=== PATIENT | female | born 1985 ===

== ENCOUNTER 2020-01-12 09:00 | Inpatient (IN) | payer SELFPAY ==
[2020-01-12] MEDS ORDERED: LACTATED RINGERS 1,000 ML ONE (09:33)
[2020-01-12] MEDS ORDERED: METOCLOPRAMIDE 10 MG/2 ML INJ ONE (09:59)
[2020-01-12] MEDS ORDERED: BICITRA ORAL LIQD 30ML PO SCH ×2 (10:00→12:30)
[2020-01-12] MEDS ORDERED: FAMOTIDINE 20 MG/2 ML INJ IV NR (10:00)
[2020-01-12] MEDS ORDERED: OXYTOCIN 20 UNIT/1000ML DRIP 20 UNITS/1,000 ML BAG IV SCH ×2 (10:00→14:00)
[2020-01-12] MEDS ORDERED: LACTATED RINGERS 1,000 ML IV SCH (10:00)
[2020-01-12] MEDS ORDERED: METOCLOPRAMIDE 10 MG/2 ML INJ IV SCH (10:00)
[2020-01-12 10:23] LABS: Basophils # (Auto) 0.1 K/mm3 (0.0-0.1); Basophils % (Auto) 0.6 % (0.0-1.8); Eosinophils # (Auto) 0.2 K/mm3 (0.0-0.4); Eosinophils % (Auto) 1.6 % (0.0-4.3); Hematocrit 31.8 % (30.3-42.9); Hemoglobin 10.1 gm/dl (10.1-14.3); Lymphocytes # (Auto) 1.2 K/mm3 (1.2-5.4); Lymphocytes % (Auto) 11.1 % (13.4-35.0); Mean Corpuscular HGB Conc 32 % (30-34); Mean Corpuscular Volume 80 fl (79-97); Monocytes # (Auto) 0.5 K/mm3 (0.0-0.8); Monocytes % (Auto) 4.5 % (0.0-7.3); Platelet Count 250 K/mm3 (140-440); Red Cell Distribution Width 17.5 % (13.2-15.2)
--- NOTE | 2020-01-12 11:26 | Anesthesia Day of Surgery ---
Anesthesia Day of Surgery - Day of Surgery Patient Examined: Yes Patient H&P Reviewed: Yes Patient is NPO: Yes
--- NOTE | 2020-01-12 11:26 | Anesthesia Consultation ---
Anesthesia Consult and Med Hx Date of service: 01/12/20 - Airway Anesthetic Teeth Evaluation: Good ROM Head & Neck: Adequate Mental/Hyoid Distance: Adequate Mallampati Class: Class II Intubation Access Assessment: Good - Pulmonary Exam CTA: Yes - Cardiac Exam Cardiac Exam: RRR - Pre-Operative Health Status ASA Pre-Surgery Classification: ASA2 Proposed Anesthetic Plan: Spinal - Pulmonary Hx Asthma: No - Cardiovascular System Hx Hypertension: No - Central Nervous System Hx Seizures: No Hx Psychiatric Problems: No - Endocrine Hx Renal Disease: No Hx Hypothyroidism: No Hx Hyperthyroidism: No - Hematic Hx Anemia: No Hx Sickle Cell Disease: No - Other Systems Hx Alcohol Use: No
[2020-01-12] MEDS ORDERED: DEXMEDETOMIDINE 200 MCG/2 ML VIAL IV ONE (11:32)
[2020-01-12] MEDS ORDERED: BUPIVACAINE /DEX-WATER 0.75% (2 ML) AMPULE INFILTRATI ONE (11:32)
[2020-01-12] MEDS ORDERED: ONDANSETRON 4 MG/2 ML INJ ONE (11:32)
--- NOTE | 2020-01-12 11:55 | History and Physical Report ---
History of Present Illness Date of examination: 01/12/20 Date of admission: 01/12/20 09:00 Chief complaint: Here for an elective History of present illness: Term . EDC January 21, 2020. 1 previous . Past History - Obstetrical History Expected Date of Delivery: 01/16/20 Actual Gestation: 39 Week(s) 3 Day(s) : 2 Para: 1 Medications and Allergies Allergies Allergy/AdvReac Type Severity Reaction Status Date / Time No Known Allergies Allergy Verified 01/12/20 09:55 Active Meds: Active Medications Citric Acid/Sodium Citrate (Bicitra) 30 ml PO ONCE AYE Stop: 01/12/20 15:00 Last Admin: 01/12/20 11:38 Dose: 30 ml Documented by: Ephedrine Sulfate (Ephedrine Sulfate) 10 mg IV Q2M PRN PRN Reason: Hypotension Famotidine (Pepcid) 20 mg IV ONCE NR Stop: 01/12/20 12:00 Last Admin: 01/12/20 11:37 Dose: 20 mg Documented by: Oxytocin/Sodium Chloride (Pitocin/Ns 20 Unit/1000ml Drip) 20 units in 1,000 mls @ 0 mls/hr IV TITR AYE Lactated Ringer's (Lactated Ringers) 1,000 mls @ 2,250 mls/hr IV PREOP AYE Stop: 01/13/20 10:27 Fentanyl/Bupivacaine/Sodium Chlor (Fentanyl-Bupiv 2 Mcg/Ml-0.125%) 200 mcg in 1 00 mls @ 12 mls/hr EPIDURAL TITR AYE; Protocol Metoclopramide HCl (Reglan) 10 mg IV ONCE AYE Stop: 01/12/20 13:00 Last Admin: 01/12/20 11:37 Dose: 10 mg Documented by: Naloxone HCl (Naloxone) 0.2 mg IV Q5M PRN PRN Reason: Respiratory sedation Review of Systems All systems: negative - Vital Signs Vital signs: Vital Signs Pulse Pulse Ox 85 98 01/12/20 09:31 01/12/20 09:31 Temp Pulse Resp BP Pulse Ox 98.6 F 86 18 109/64 98 01/12/20 10:15 01/12/20 09:36 01/12/20 10:15 01/12/20 09:33 01/12/20 09:36 - Physical Exam Lungs: Positive: Normal air movement Abdomen: Positive: distention. Negative: tenderness, guarding Extremities: Positive: normal Deep Tendon Reflex Grade: Normal +2 - Obstetrical FHR: auscultation normal Results Result Diagrams: 01/12/20 09:48 Abnormal lab results 01/12/20 Range/Units 09:48 MCH 25 L (28-32) pg RDW 17.5 H (13.2-15.2) % Lymph % (Auto) 11.1 L (13.4-35.0) % Seg Neutrophils % 82.2 H (40.0-70.0) % Seg Neutrophils # 9.1 H (1.8-7.7) K/mm3 All other labs normal. Assessment and Plan - Patient Problems (1) Term Current Visit: Yes Status: Acute (2) Previous section complicating Current Visit: Yes Status: Acute Plan to address problem: The pros and cons of versus repeat section were discussed with the patient and after answering all her questions she provided her consent choosing to have a repeat .
[2020-01-12] MEDS ORDERED: OXYTOCIN 10 UNIT/1 ML INJ ONE (11:58)
[2020-01-12] MEDS ORDERED: ceFAZolin/Water 2 GM/20 ML 2 GM/20 ML SYRINGE IV NR (12:00)
[2020-01-12] MEDS ORDERED: ePHEDrine SULFATE 50 MG/1 ML INJ IV PRN (12:00)
[2020-01-12] MEDS ORDERED: ceFAZolin/STERILE WATER 2 GM/20 ML SYRINGE IV ONE (12:00)
[2020-01-12] MEDS ORDERED: fentaNYL-BUPIV 2 MCG/ML-0.125% 200 MCG/100 ML BAG EPIDURAL SCH (12:00)
[2020-01-12] MEDS ORDERED: NALOXONE 2 MG/2 ML INJ IV PRN (12:00)
[2020-01-12] MEDS ORDERED: WATER FOR IRRIG STERILE 1,500 ML BOTTLE IR ONE (12:11)
[2020-01-12] MEDS ORDERED: SODIUM CHLORIDE 0.9% IRR 1,500 ML BOTTLE IR ONE (12:11)
[2020-01-12] MEDS ORDERED: KETOROLAC 30 MG/1 ML INJ ONE (12:41)
[2020-01-12] MEDS ORDERED: PHENYLEPHRINE/NS 1,000 MCG/10 ML SYRINGE (OR USE) IV ONE (12:41)
[2020-01-12] MEDS ORDERED: diphenhydrAMINE 50 MG/ML VIAL ONE (12:41)
[2020-01-12] MEDS ORDERED: dexAMETHasone 20 MG/5 ML VIAL ONE (12:41)
--- NOTE | 2020-01-12 13:12 | Operative Report ---
Operative Report Operative Report: Date of surgery: January 12, 2020 Preoperative diagnoses: Term , previous section, breech pr esentation Postoperative diagnoses: The same. Operation: Lower segment transverse delivery Surgeon: Venecia Hand MD Shoe Designer: Massimo Sutherland CRNA Anesthesia: Spinal block Estimated blood loss: 300 mL Complications: None Findings: There was a live baby girl in liliana breech, weight 6 pounds 12 ounces, Apgars 8 and 9. The ovaries, fallopian tubes and the uterus were all grossly normal. There were no significant adhesions within the pelvis. Procedure in detail: The patient was taken to the operating room and given a spinal block. Patient was placed in the straight supine position and a Cole catheter was inserted. The patient was prepped in the abdomen. The drapes were placed. A timeout was done. With the go ahead from the machine pack assembler, a Pfannenstiel incision was made. This incision was carried across the subcutaneous layer to the fascia which was also divided transversely. The recti abdominis muscle flaps were stripped from the fascia using a combination of blunt and sharp dissections. The muscles were in the midline to gain access to the anterior parietal peritoneum which was divided after excluding any underlying viscera. The access to the peritoneal cavity was then widened by manual stretching. The bladder blade was applied. The utero vesicle peritoneal flap was divided transversely allowing the bladder to be displaced caudally. The uterine incision was placed in the lower segment transversely. The uterine incision was carried to the decidual layer. The uterine incision was extended on both sides using the bandage scissors. The amniotic sac was ruptured with clear fluid. The buttocks were delivered through the incision by pulling with the fingers within the flexed thigh against the pelvis. Upon reaching close to the knees t he thighs were each abducted to deliver the lower limbs through the incision. Using a wet towel wrapped around the waist traction was used to deliver the baby up to the shoulder blades. The Lovset maneuver was used to deliver the arms. The baby was then grasped and the ankles and positioned head down after which fundal pressure and traction on the ankles delivered the head through the incision. The airways were bulb suctioned beginning with the mouth. The umbilical cord was double clamped and divided. The baby was carefully transferred to the pediatric team. The placenta was manually removed from the uterine cavity. The uterine cavity was explored and was empty of any placental remnants. The uterine incision was repaired in 2 layers with #1 Vicryl. The surgical line on the uterus was hemostatic. Blood and clots were cleared from the peritoneal cavity. The anterior parietal peritoneum was repaired with #1 Vicryl. The fascia was repaired with #1 Vicryl. The subcutaneous layer was made hemostatic using the Bovie before the skin was closed subcuticularly with 4-0 Vicryl. There were no complications. The estimated blood loss was 300 mL. All sponges and instrument counts were correct. Patient was safely transferred to the recovery room.
[2020-01-12] MEDS ORDERED: ACETAMINOPHEN 325 MG TAB PO PRN (13:13)
[2020-01-12] MEDS ORDERED: MORPHINE 4 MG/1 ML INJ IV PRN (13:13)
[2020-01-12] MEDS ORDERED: LANOLIN/ZINC/DIMETHICONE (LANSINOH) 7 GM TP PRN (13:13)
[2020-01-12] MEDS ORDERED: NALOXONE 0.4 MG/1 ML INJ IV PRN (13:13)
[2020-01-12] MEDS ORDERED: WITCH HAZEL/ GLYCERIN PAD TP PRN (13:13)
[2020-01-12] MEDS ORDERED: ONDANSETRON 4 MG/2 ML INJ IV PRN (13:13)
--- NOTE | 2020-01-12 13:21 | Progress Note ---
Spinal Anesthesia Block - Spinal Anesthesia Block Start Time: 11:44 Stop Time: 12:58 Performed by:: IZABEL KUO Procedure: Spinal anesthesia block is being performed for repeat . H&P, labs have been reviewed. Patient's questions and concerns have been answered. Informed consent has been performed. Timeout has was performed. Patient in sitting position on side of bed. Sterile prep and drape was performed. 3 mL 1% lid ocaine skin wheal at L 3-L 4. Needle introducer advanced. 25-gauge spinal needle advanced, clear CSF negative blood. 1.5 mL of 0.75% bupivacaine with dextrose and 10 mcg Precedex spinal dose was given. All needles removed. Patient tolerated procedure well.
--- NOTE | 2020-01-12 13:21 | Post Anesthesia Evaluation ---
- Post Anesthesia Evaluation Patient Participated: Yes Airway Patent: Yes Stable Respiratory Function: Yes Nausea/Vomiting: No Temp > 96.8F: Yes Pain Manageable: Yes Adequeate Hydration: Yes Anesthesia Complications: No Block Receding Appropriately: Yes Patient on Ventilator: No
[2020-01-12] MEDS: KETOROLAC 30 MG/1 ML INJ IV PRN ×2 (18:34→23:34)
[2020-01-12] MEDS: D5W/LACTATED RINGERS 1,000 ML IV SCH (19:51)
[2020-01-12] MEDS: ceFAZolin/NS 1 GM/50 ML 1 GM/50 ML BAG IV SCH (19:52)
[2020-01-13 01:04] LABS: Hematocrit 24.9 % (30.3-42.9); Hemoglobin 8.5 gm/dl (10.1-14.3)
[2020-01-13] MEDS: D5W/LACTATED RINGERS 1,000 ML IV SCH (02:48)
[2020-01-13] MEDS: ceFAZolin/NS 1 GM/50 ML 1 GM/50 ML BAG IV SCH (03:43)
[2020-01-13] MEDS: HYDROcodone/ACETAMINOPHEN 5-325 MG TAB PO PRN ×2 (04:53→12:57)
[2020-01-13] MEDS: IBUPROFEN 800 MG TAB PO PRN ×3 (09:41→23:18)
[2020-01-13] MEDS: FERROUS SULFATE 325 MG TAB PO SCH (09:41)
[2020-01-13] MEDS: PRENATAL VIT27-FE FUMARATE-FOLIC ACID VIT TAB PO SCH (09:42)
--- NOTE | 2020-01-13 11:00 | Progress Note ---
Assessment and Plan A: /postop day 1 S/P repeat LTCS. Anemia. P: Oral iron supplementation. Advance diet. Encouraged ambulation. Subjective - Subjective Date of service: 01/13/20 Principal diagnosis: /postop day 1 S/P repeat LTCS Interval history: /postop day 1 S/P repeat LTCS. Voiding without difficulty, passing gas, tolerating liquid diet, ambulating well. Patient reports: appetite normal, voiding normally, pain well controlled, flatus, ambulating normally, no dizzy ambulation, no nauseated : doing well Objective - Vital Signs Latest vital signs: Vital Signs Temp Pulse Resp BP BP Pulse Ox 01/13/20 08:20 97.9 F 79 20 104/59 01/13/20 04:53 20 01/13/20 04:13 98.0 F 81 20 99/56 96 01/12/20 23:52 98.4 F 86 20 100/54 95 01/12/20 23:34 20 01/12/20 20:18 98.6 F 94 H 18 104/62 96 01/12/20 16:53 98.4 F 75 17 103/60 99 01/12/20 14:44 97.7 F 65 18 94/53 100 01/12/20 14:15 97.5 F L 78 13 96/56 98 01/12/20 14:00 76 13 98/46 97 01/12/20 13:45 73 15 92/40 97 01/12/20 13:37 95 H 12 115/91 97 01/12/20 13:29 82 12 91/44 98 01/12/20 13:21 64 14 83/62 98 01/12/20 13:11 97.4 F L 60 14 96/56 98 Intake and Output 01/12/20 01/13/20 01/13/20 23:59 07:59 15:59 Intake Total 170 1228.75 120 Output Total 350 1800 600 Balance -180 -571.25 -480 Intake: IV 50 868.75 ANCEF/NS 1 GM/50 ML 1 gm 50 In 50 ml @ 100 mls/hr IV Q8H AYE Rx#:[id number] D5lr 1,000 ml @ 125 mls/ 868.75 hr IV DIRECT AYE Rx#: [id number] Oral 120 360 120 Output: Urine 350 1800 600 Indwelling Catheter 350 1500 Void 300 600 Other: Total, Intake Amount 120 120 120 Total, Output Amount 350 300 600 - Exam Cardiovascular: Present: Regular rate, Normal S1, Normal S2 Lungs: Present: Clear to auscultation Abdomen: Present: normal appearance, soft, normal bowel sounds. Absent: distention, tenderness, guarding, rigidity Uterus: Present: normal, firm, fundal height below umbilicus. Absent: bogginess, tenderness Extremities: Present: normal. Absent: tenderness Incision: Present: normal, dry, dressed - Labs Labs: Abnormal lab results 01/13/20 Range/Units 00:54 Hgb 8.5 L (10.1-14.3) gm/dl Hct 24.9 L D (30.3-42.9) %
[2020-01-14] MEDS ORDERED: TETANUS,DIPH,PERTUSS(ACELL) VACCINE 0.5 ML SYRINGE IM ONE (09:00)
[2020-01-14] MEDS: FERROUS SULFATE 325 MG TAB PO SCH (10:07)
[2020-01-14] MEDS: PRENATAL VIT27-FE FUMARATE-FOLIC ACID VIT TAB PO SCH (10:07)
[2020-01-14] MEDS: IBUPROFEN 800 MG TAB PO PRN ×2 (10:07→16:37)
--- NOTE | 2020-01-14 11:05 | Progress Note ---
Assessment and Plan A: /postop day 2 S/P repeat LTCS. Anemia. P: Continue oral iron supplementation. Continue current management. Anticipate discharge home tomorrow if patient continues to do well. Subjective - Subjective Date of service: 01/14/20 Principal diagnosis: /postop day 2 S/P repeat LTCS Interval history: /postop day 2 S/P repeat LTCS. Voiding without difficulty, passing gas, tolerating regular diet, ambulating well. Patient reports: appetite normal, voiding normally, pain well controlled, flatus, ambulating normally, no dizzy ambulation, no nauseated [place]: doing well Objective - Vital Signs Latest vital signs: Vital Signs Temp Pulse Resp BP Pulse Ox 01/14/20 08:35 97.8 F 72 18 93/56 97 01/14/20 00:18 98.6 F 80 18 93/61 97 01/13/20 23:18 18 Intake and Output 01/13/20 01/14/20 01/14/20 23:59 07:59 15:59 Intake Total 800 480 Output Total 1300 Balance -500 480 Intake: Oral 560 Intake, Free Water 240 480 Output: Urine 1300 Void 1300 Other: Total, Intake Amount 320 Total, Output Amount 400 # Voids Void 2 - Exam Cardiovascular: Present: Regular rate, Normal S1, Normal S2 Lungs: Present: Clear to auscultation Abdomen: Present: normal appearance, soft, normal bowel sounds. Absent: distention, tenderness, guarding, rigidity Uterus: Present: normal, firm, fundal height below umbilicus. Absent: bogginess, tenderness Extremities: Present: normal. Absent: tenderness, edema Incision: Present: normal, dry, intact, dressed
[2020-01-14] MEDS ORDERED: FLU VACC QUAD 2019-20 (3 YR UP)/PF 60 MCG/0.5 ML SYRINGE IM ONE (12:00)
[2020-01-15] MEDS ORDERED: TETANUS,DIPH,PERTUSS(ACELL) VACCINE 0.5 ML SYRINGE IM ONE (05:15)
--- NOTE | 2020-01-15 07:07 | Progress Note ---
Assessment and Plan A: /postop day 3 S/P repeat LTCS. Anemia. P: Discharge patient home today. Discussed with patient discharge instructions and warning signs, activity restrictions, and care of incision. Advised patient to avoid intercourse, lifting, housework, driving, tub baths (patient may take showers). Advised patient to continue taking her vitamin and iron supplements at home. Advised patient to follow up at OB clinic in 1 week. Patient voiced understanding of all instructions. Subjective - Subjective Date of service: 01/15/20 Principal diagnosis: /postop day 3 S/P repeat LTCS Interval history: /postop day 3 S/P repeat LTCS. Voiding without difficulty, passing gas, tolerating regular diet, ambulating well. Patient desires discharge today. Patient reports: appetite normal, voiding normally, pain well controlled, flatus, ambulating normally, no dizzy ambulation, no nauseated [place]: doing well Objective - Vital Signs Latest vital signs: Vital Signs Temp Pulse Resp BP Pulse Ox 01/15/20 00:36 98.1 F 73 18 100/62 98 01/14/20 17:04 97.8 F 70 12 103/60 98 01/14/20 08:35 97.8 F 72 18 93/56 97 Intake and Output 01/14/20 01/14/20 01/15/20 15:59 23:59 07:59 Intake Total 400 480 Balance 400 480 Intake: Oral 400 480 Other: Total, Intake Amount 200 240 Voiding Method Toilet # Voids 1 Void 1 2 - Exam Cardiovascular: Present: Regular rate, Normal S1, Normal S2, No murmurs Lungs: Present: Clear to auscultation Abdomen: Present: normal appearance, soft, normal bowel sounds. Absent: distention, tenderness, guarding, rigidity Uterus: Present: normal, firm, fundal height below umbilicus. Absent: bogginess, tenderness Extremities: Present: normal. Absent: tenderness, edema Incision: Present: normal, dry, intact
--- NOTE | 2020-01-15 07:10 | Discharge Summary ---
Providers - Providers Date of Admission: 01/12/20 09:00 Date of discharge: 01/15/20 Attending physician: PRINCESS BUNCH MD Primary care physician: PRINCESS BUNCH MD Hospitalization Reason for admission: section Delivery: Procedure: repeat low transverse Incision: normal, dry, intact Other procedures: none complications: none Discharge diagnosis: IUP at term delivered [place] baby: female Pertinent studies: Labs Hospital course: Normal hospital course. Condition at discharge: Good Disposition: DC-01 TO HOME OR SELFCARE - Discharge Diagnoses (1) Term delivered Status: Acute (2) Anemia Status: Acute Plan - Discharge Medications Prescriptions: HYDROcodone/APAP 5-325 [[place] 5/325] 1 - 2 each PO Q4HR PRN #30 tablet PRN Reason: Pain - Provider Discharge Summary Activity: routine, no sex for 6 weeks, no heavy lifting 4 weeks, no strenuous exercise Diet: routine Instructions: routine Additional instructions: Continue taking your vitamin and iron supplements at home. Call your doctor immediately for: * Fever > 100.5 * Heavy vaginal bleeding ( >1 pad per hour) * Severe persistent headache * Shortness of breath * Reddened, hot, painful area to leg or breast * Drainage or odor from incision. * Keep incision clean and dry at all times and follow doctor's instructions regarding bathing/showering - Follow up plan Follow up: PRINCESS BUNCH MD [Primary Care Provider] - 7 Days
[2020-01-15] MEDS ORDERED: FLU VACC QUAD 2019-20 (3 YR UP)/PF 60 MCG/0.5 ML SYRINGE IM ONE (08:45)
[2020-01-15] MEDS: PRENATAL VIT27-FE FUMARATE-FOLIC ACID VIT TAB PO SCH (09:01)
[2020-01-15] MEDS: FERROUS SULFATE 325 MG TAB PO SCH (09:01)
[2020-01-15] MEDS: NEOMY 3.5 MG/BACIT 400 UNITS/POLY B 5000 UNITS/GM OINT PACKET TP SCH ×2 (09:01→14:26)
[2020-01-15] MEDS: HYDROcodone/ACETAMINOPHEN 5-325 MG TAB PO PRN (12:40)
[2020-01-15 13:09] VITALS: BP 99/63
== END 2020-01-15 15:10 | disposition home or self-care (01) | DRG 787 ==
LOC: APU 09:00 → OB 15:19
PROVIDERS: ADMIT Obstetrics & Gynecology; ATTEND Obstetrics & Gynecology
PROC: 10D00Z1 Extraction of Products of Conception, Low, Open Approach (ICD-10-PCS; principal; 2020-01-12)
PROC: 3E0234Z Introduction of Serum, Toxoid and Vaccine into Muscle, Percutaneous Approach (ICD-10-PCS; 2020-01-15)
DX: O34.211 Maternal care for low transverse scar from previous cesarean delivery (principal); D62 Acute posthemorrhagic anemia; O99.02 Anemia complicating childbirth; Z3A.39 39 weeks gestation of pregnancy; Z37.0 Single live birth
CPT/HCPCS: 36415; 85014; 85018; 85025; 86850; 86900; 86901; 90471; 90686; 90715; G0378; A6250; J0690; J1100; J1200; J1885; J2370; J2405; J2590; J2765; J3490; J7120; J7121